=== PATIENT | male | born 2000 | race Caucasian/White ===

== ENCOUNTER → 2021-11-23 | Day surgery (SDC) | payer BC ==
[~2021-11-23] MED LIST: DICYCLOMINE HCL20 MG PO; GLUCAGON FOR INJ 1 MG VIAL ONE; HYOSCYAMINE SULFATE 0.5 MG/ML INJ ONE; LIDOCAINE HCL 2% LOCAL INJ 5 ML SDV VIAL INJ ONE; METRONIDAZOLE500 MG PO; MIDAZOLAM HCL 2 MG/2 ML VIAL ONE; PAROXETINE HCL20 MG PO; PROPOFOL IV EMULSION 10 MG/ML 20 ML VIAL ONE; [UNRECOGNIZED DRUG - OTHER] PO
[2021-11-23 15:45] VITALS: BP 118/76
== END | disposition home or self-care (01) ==
LOC: OR 12:29
PROVIDERS: ATTEND Internal Medicine Gastroenterology
DX: K52.9 Noninfective gastroenteritis and colitis, unspecified (principal); K21.9 Gastro-esophageal reflux disease without esophagitis; K62.89 Other specified diseases of anus and rectum; K64.8 Other hemorrhoids; Z68.41 Body mass index [BMI] 40.0-44.9, adult; F41.9 Anxiety disorder, unspecified; J45.909 Unspecified asthma, uncomplicated; R06.83 Snoring; Z01.812 Encounter for preprocedural laboratory examination; Z20.822 Contact with and (suspected) exposure to COVID-19
CPT/HCPCS: 0223U; 36415; 45380; 83630; 83993; 87045; 87177; 87324; 87328; 87449; J1610; J1980; J2001; J2250; J2704; 45378